=== PATIENT | male | born 1980 ===

== ENCOUNTER 2025-05-04 14:40 | Outpatient (AMB) | payer BC, SELFPAY ==
--- NOTE | 2025-05-04 14:43 | MHC.OFFVIS ---
Intake Visit Reasons: 1 yr sz Allergies Penicillins (PENICILLINS) Allergy (Unknown, Unverified 05/04/25 14:48) UNKNOWN Medication List - Last Reconciled 05/04/25 by Lissette Otto CNP atorvastatin 40 mg PO DAILY levetiracetam 750 mg PO BID 90 days losartan 25 mg PO DAILY HPI Comments Details: He was doing okay. He was taking levetiracetam twice a day. No seizures. Sleep was okay, getting about 7 hours/night, occasionally interrupted by 4-year-old daughter. No significant back pain, managing with exercise and stretching. Liver enzymes (ALT, AST) being monitored by PCP and remain mildly elevated, had labs few months ago. No further events of LOC since the unwitnessed event on 04/02/18 with LOC with confusion and amnesia for several minutes. He had a negative CT of the head, X-rays of the clavicle and lab work. There is no previous history of fainting, or seizures. There is no history of significant head trauma. His mother has episodes that have been thought to be seizures. He has had previous low back pain problems that act up from time to time. [facility] Medical History (Updated 05/04/25 @ 14:48 by Lissette Otto CNP) Low back pain Elevated liver enzymes Seizure disorder Review of Systems Const Denies chills, Denies daytime sleepiness, Denies difficulty sleeping, Denies fatigue, Denies fever(s), Denies frequent falls, Denies headache(s), Denies increased appetite, Denies poor appetite, Denies snoring, Denies weakness, Denies weight gain and Denies weight loss Eyes Denies loss of vision ENT Denies vertigo, Denies dizziness, Denies headache(s) and Denies neck pain Card Denies chest pain at rest, Denies chest pain with activity, Denies syncope, Denies leg edema, Denies palpitations, Denies dyspnea and Denies dyspnea on exertion Resp Denies cough, Denies dyspnea, Denies dyspnea on exertion and Denies snoring GI Denies abdominal pain, Denies constipation, Denies heartburn, Denies diarrhea and Denies nausea Denies urinary frequency, Denies urinary incontinence and Denies urinary urgency Musc Denies abnormal gait, Denies back pain, Denies myalgias, Denies arthralgias, Denies neck pain, Denies numbness and Denies tingling Neuro Denies abnormal gait, Denies vertigo, Denies dizziness, Denies syncope, Denies frequent falls, Denies headache(s), Denies lack of coordination, Denies loss of vision, Denies memory loss, Denies numbness, Denies Other visual disturbances, Denies restless legs, Denies seizure-like activity, Denies tingling, Denies paresthesias, Denies tremor(s) and Denies weakness Psych Denies anxiety, Denies depression, Denies auditory hallucinations, Denies memory loss and Denies visual hallucinations Endo Denies fatigue and Denies palpitations Physical Exam Const Other: General Appearance:? normal, in no acute distress. Heart:? S1, S2 normal, no murmurs. Lungs:? clear anteriorly and posteriorly. Musculoskeletal:? normal. Extremities:? no edema. Psych:? alert, oriented, cognitive function intact, cooperative with exam. Neuro Other: Abnormal Neurological Findings:?none.? Mental Status: alert and oriented X 3. Normal attention, orientation, memory, and affect. Cranial Nerves: Pupils are equal, round, and reactive to light. External ocular muscles are intact. Visual guzman are full, no ptosis. Face is symmetrical, no facial weakness or droop. Facial sensations are normal. Tongue protrudes in midline. Palate elevates symmetrically. Shoulder shrugging is normal Motor Examination: Normal muscle tone, bulk and strength. No atrophy or fasciculations. No drift of the extended upper extremities. DTR 2+. Plantars are flexor. Sensory Exam: Normal light touch, temperature, pinprick, vibration, and joint-position sensations. Rhomberg sign is absent. Coordination: No ataxia. No titubation. Gait Exam: Within normal limits. Cerebellar Signs: [id number] is okay. Extrapyramidal System: No tremor, rigidity with normal facial expressions. No bradykinesia. No bradyphrenia. Normal arm swing and posture. No propulsion or retropulsion. Speech: Normal. Assessment & Plan Assessment & Plan (1) Seizure disorder: Code(s): G40.909 - Epilepsy, unspecified, not intractable, without status epilepticus Category: Medical Plan: Continue levetiracetam 750mg 1 tablet twice a day. He was educated on the importance of medication compliance and risk associated with missed doses including seizures. Follow up in 1 year or sooner as needed. Medications: Refilled levetiracetam 750 mg PO BID 180 tabs 3RF 90 days Coding Level of Care Code Est Pt Level 3 (94911) Diagnoses Seizure disorder G40.909
--- OUTSIDE RECORDS SUMMARY | 2025-05-04 20:05 | XMS_ITS | Encounter Summary ---
Author Organization Formerly [facility] Address [address] [place] [address] Phone Care Team Providers Care Donor Services Manager Name Role Phone Betsy Wisdom MD Primary Care Provider Betsy Wisdom MD Unavailable [phone] Encounter Details Date Type Department Care Team (Latest Contact Info) Description 04/16/2019 Transcribe Orders [facility] [address] [place] [address] Bolivar Sena MD [address] [place] [id number] [email or web address] Nonalcoholic steatohepatitis (Primary Dx) Social History Tobacco Use Types Packs/Day Years Used Date Smoking Tobacco: Never Smokeless Tobacco: Never Alcohol Use Standard Drinks/Week Comments Yes 0 (1 standard drink = 0.6 oz pur e alcohol) in moderation Sex and Gender Information Value Date Recorded Sex Assigned at Not on file Legal Sex Male 9:21 PM EDT Gender Identity Not on file Sexual Orientation Not on file documented as of this encounter Plan of Treatment Not on file documented as of this encounter Results * Ceruloplasmin (04/16/2019 9:02 AM EDT) CERULOPLASMIN 23 20 - 60 mg/dL [facility] Blood 04/16/2019 9:02 AM EDT 04/16/2019 9:07 AM EDT us Bolivar Sena MD LAB BLOOD ORDERABLES Final R esult [address] [address] * (ABNORMAL) Liver fibrosis test (04/16/2019 9:02 AM EDT) Fibrosis score 0.21 [facility] Interpretation (Fibrosis) SEE NOTE [facility] Comment: (NOTE) no fibrosis Fibro Test Score (f) Metavir Score f>=0 and f<=0.21 : F0 (no fibrosis) f>0.21 and f<=0.27 : F0-F1 (no fibrosis) f>0.27 and f<=0.31 : F1 (minimal fibrosis) f>0.31 and f<=0.48 : F1-F2 (minimal fibrosis) f>0.48 and f<=0.58 : F2 (moderate fibrosis) f>0.58 and f<=0.72 : F3 (advanced fibrosis) f>0.72 and f<=0.74 : F3-F4 (advanced fibrosis) f>0.74 and f<=1.00 : F4 (severe fibrosis) HCV Fibrosis Grade SEE NOTE [facility] Comment: (NOTE) Result: F0-F1 NECROINFLAMM SCORE 0.55 [facility] NECROINFLAMM GRADE A2 [facility] NECROINFLAMM INTERP SEE NOTE [facility] Comment: (NOTE) significant activity ActiTest Score (a) Metavir Score a>=0 and a<=0.17 : A0 (no activity) a>0.17 and a<=0.29 : A0-A1 (no activity) a>0.29 and a<=0.36 : A1 (minimal activity) a>0.36 and a<=0.52 : A1-A2 (minimal activity) a>0.52 and a<=0.60 : A2 (significant activity) a>0.60 and a<=0.62 : A2-A3 (significant activity) a>0.62 and a<=1.00 : A3 (severe activity) A2 Macroglobulin 137 106 - 279 mg/dL [facility] Haptoglobin 126 43 - 212 mg/dL [facility] Apolipoprotein A1 130 94 - 176 mg/dL [facility] TOTAL BILIRUBIN 0.6 0.2 - 1.2 mg/dL [facility] GGT 134(H) 3 - 90 U/L [facility] ALT 105(H) 9 - 46 U/L [facility] Specimen/Product ID [id number] [facility] Comments (Chemistry) SEE NOTE [facility] Comment: (NOTE) The reliability of results is dependent on compliance with the preanalytical and analytical conditions recommended by [employer]. The tests have to be deferred for: acute hemolysis, acute hepatitis, acute inflammation, extra hepatic cholestasis. The advice of a specialist should be sought for interpretation in chronic hemolysis and Gilbert's syndrome. The test interpretation is not validated in liver transplant patients. Isolated extreme values of one of the components should lead to caution in interpreting the results. In case of discordance between a biopsy result and a test, it is recommended to seek the advice of a specialist. The causes of these discordances could be due to a flaw of the test or to a flaw in the biopsy: i.e. a liver biopsy has a 33% variability rate for one fibrosis stage. FibroTest is interpretable for chronic hepatitis B and C, alcoholic and non alcoholic steatosis. ActiTest is interpretable for chronic hepatitis B and C. The performance characteristics have been determined by [facility]. It has not been cleared or approved by the U.S. Food and Drug Administration. Performance characteristics refer to the analytical performance of the test. Yakaz, the associated logo, Met[employer]us and all associated [employer] zuleta are the registered trademarks of [employer]. All third libertarian zuleta - (R) and (TM) - are the property of their respective owners. (C) [id number] [employer]. All rights reserved. Test performed at [email or web address] [facility] [address] [place] [address] Director: MJ MEDRANO MD,PHD,SONA Blood 04/16/2019 9:02 AM EDT 04/16/2019 9:06 AM EDT Bolivar Sena MD LAB BLOOD BKR ORDERABLES Fin al Result [address] [address] * (ABNORMAL) Comprehensive metabolic panel (04/16/2019 9:02 AM EDT) SODIUM 141 133 - 146 mmol/L [facility] POTASSIUM 4.4 3.3 - 5.1 mmol/L [facility] CHLORIDE 104 96 - 108 mmol/L [facility] CO2 27 21 - 35 mmol/L [facility] BUN 11 6 - 19 mg/dL [facility] CREATININE 0.90 0.5 - 1.5 mg/dL [facility] GLUCOSE 95 70 - 99 mg/dL [facility] ALBUMIN 4.4 3.9 - 4.8 g/dL [facility] TOTAL PROTEIN 7.0 6.5 - 8.0 g/dL [facility] CALCIUM 9.4 8.4 - 10.3 mg/dL [facility] ALKALINE PHOSPHATASE 67 39 - 117 U/L [facility] TOTAL BILIRUBIN 0.5 0.0 - 1.2 mg/dL [facility] AST 39(H) 0 - 37 U/L [facility] ALT 108(H) 0 - 40 U/L [facility] GLOBULIN 2.6 1 - 4.8 g/dL [facility] EGFR 108 >59 mL/min/1.7 3m2 [facility] Comment:If patient is black, multiply result by 1.159. Estimated glomerular filtration rate calculated using the CKD-EPI equation. ANION GAP 14 10 - 20 mmol/L [facility] Blood 04/16/2019 9:02 AM EDT 04/16/2019 9:07 AM EDT us Bolivar Sena MD LAB BLOOD BKR ORDERABLES Fin al Result Performing Organization Address City/[facility]/ZIP Co de Phone Number [address] [address] documented in this encounter Visit Diagnoses Diagnosis Nonalcoholic steatohepatitis- Primary Other chronic nonalcoholic liver disease documented in this encounter Care Teams Donor Services Manager Relationship Specialty Start Date End Date Betsy Wisdom MD [address] [place] [address] [email or web address] PCP - General 03/30/17 Betsy Wisdom MD [address] [place] [address] [email or web address] Insurance Assigned Provider 10/16/1810/19 documented as of this encounter Additional Source Comments The information contained in this document represents components of the legal health record. It is not the complete legal health record.Formerly [facility]
--- OUTSIDE RECORDS SUMMARY | 2025-05-04 20:05 | XMS_ITS | Clinical Summary ---
Author Organization Formerly [facility] Address [address] [place] [address] Care Team Providers Care [employer] Agriculture Specialist Name Role Phone Mendoza Aguilera MD Unavailable [phone] Poppy Castillo APRN Primary Care Provider [phone] Allergies Active Allergy Reactions Criticality Noted Date Comments Penicillins Unknown/Patient and Family Unable to Define Medium 02/25/2018 Medications levETIRAcetam (KEPPRA) 750 MG tablet Take 1 tablet (750 mg total) by mouth 2 (two) times a day. 2 Active [place]-3 Fatty Acids (Fish Oil) 1200 MG Cap Take by mouth 2 (two) times a day. Active losartan (COZAAR) 25 MG tabletIndications:H ypertension, essential, benign Take 1 tablet (25 mg total) by mouth daily. 90 tablet 5 05/09/20 25 Active atorvastatin (LIPITOR) 40 MG tabletIndications:H yperlipidemia, unspecified hyperlipidemia type Take 1 tablet (40 mg total) by mouth daily. 90 tablet 5 05/25/20 25 Active Active Problems Problem Noted Date Diagnosed Date Sinus tachycardia 11/28/2024 Chronic low back pain 10/26/2024 Fatty liver 10/26/2024 Mild anxiety 10/26/2024 Transaminitis 04/20/2024 White coat syndrome without diagnosis of hyperte nsion 10/12/2023 Seizure 11/19/2022 Primary hypertension 11/19/2022 Hyperlipidemia 11/19/2022 Syncope and collapse 02/25/2018 Resolved Problems Problem Noted Date Diagnosed Date Resolved Date Abnormal LFTs 11/25/2021 04/20/2024 Encounters Date Type Department Care Team Description 03/03/2025 8:00 AM EDT Office Visit [facility] Department of Internal Medicine [address] [place] [address] Poppy Castillo APRN Hyperlipidemia, unspecified hyperlipidemia type (Primary Dx); Hypertension, essential, benign ; Transaminitis; Seizure (HCC); Family history of premature CAD; Prediabetes from Last 3 Months Immunizations Immunization Administration Dates Next Due Tdap 11/19/2022 Family History Medical History Relation Name Comments Heart attack Brother Quinton Torres After event, I had stress tests with no concerning results. Arthritis Father Thong Torres two hip replace ments Hypertension Father Thong Torres Hypertension Mother Chasity Torres Seizures Mother Chasity Torres Stroke Paternal Grandfather Joseph Torres Diabetes Paternal Grandmother Telma Torres Cancer Neg Hx Relation Name Status Comments Brother Quinton Torres Father Thong Torres Mother Chasity Torres Paternal Grandfather Joseph Torres Paternal Grandmother Telma Torres Alive Social History Tobacco Use Types Packs/Day Years Used Date Smoking Tobacco: Never Smokeless Tobacco: Never Tobacco Cessation:Counseling Given: Not Answered Alcohol Use Standard Drinks/Week Comments Yes 6 (1 standard drink = 0.6 oz pur e alcohol) 6 beers on weekend PHQ-2 Answer Date Recorded PHQ-2 Total Score 0 10/26/2024 Sex and Gender Information Value Date Recorded Sex Assigned at Male 06/10/2023 2:36 PM EST Legal Sex Male 2:06 PM EDT Gender Identity Male 06/10/2023 2:36 PM EST Sexual Orientation Heterosexual (straight) 06/10 2:36 PM EST 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 Not on file Not on file Last Filed Vital Signs Vital Sign Reading Time Taken Comments Blood Pressure 132/87 03/03/2025 7:37 AM EDT Pulse 85 03/03/2025 7:37 AM EDT Temperature 35.6 C (96.1 F) 11/25/2021 3:21 PM EDT Respiratory Rate - - Oxygen Saturation 95% 03/03/2025 7:37 AM EDT Inhaled Oxygen Concentration - - Weight 98.2 kg (216 lb 7.9 oz) 03/03/2025 7:37 A M EDT Height 181.6 cm (5' 11.5 ) 11/28/2024 3:25 PM ED T Body Mass Index 29.77 11/28/2024 3:25 PM EDT Plan of Treatment Health Maintenance Due Date Last Done Comments Hepatitis B Vaccines (1 of 3 - 19+ 3-dose series) 11/23/1999 Influenza Vaccine 01/13/2025 COVID-19 Vaccine (1 - 2023-2 5 season) 2025 DTaP/Tdap/Td Vaccines (2 - T d or Tdap) 11/19/2032 11/19/2022 HIV Screening Completed 12/04/2022 Hepatitis C Virus Screening Completed 07/17, 12/04/2022 HPV Vaccines (No Doses Required) Completed Pneumococcal Vaccine: Pediatric (0-5 Years) and At-Risk Patients (6 to 49 Years) Aged Out No longer eligible b ased on patient's age to complete this topic Procedures Procedure Name Priority Date/Time Associated Diagnosis Comments COMPREHENSIVE METABOLIC PANEL Routine 03/03/2025 8:15 AM EDT Transaminitis LIPID PANEL Routine 02/23/2025 7:30 AM EDT Hyperlipidemia, unspecified hyperlipidemia type COMPREHENSIVE METABOLIC PANEL Routine 02/23/2025 7:30 AM EDT Hyperlipidemia, unspecified hyperlipidemia type HEPATITIS C VIRUS (HCV) ANTIBODY Routine 08/13/2023 7:48 AM EST Encounter for preventive health examination HIV 1/2 AG/AB CMIA REFLEX TO CONFIRMATION Routine 12/04/2022 6:49 PM EDT Encounter for preventive health examination from Last 3 Months or Most Recently Relevant to Health Maintenance Results * (ABNORMAL) Comprehensive Metabolic Panel (03/03/2025 8:15 AM EDT) Only the most recent of2 resultswithin the time period is included. Glucose 96 70 - 99 mg/dL [facility] Blood Urea Nitrogen 13 7 - 22 mg/dL [facility] Creatinine, Ser 1.0 0.5 - 1.2 mg/dL [facility] Bun / Creat Ratio 13 11 - 30 [facility] Sodium 141 133 - 145 mmol/L [facility] Potassium 4.5 3.3 - 5.1 mmol/L [facility] Chloride 104 96 - 108 mmol/L [facility] CO2 26 22 - 31 mmol/L [facility] Anion Gap 11 3 - 19 mmol/L [facility] Calcium 9.7 8.8 - 10.6 mg/dL [facility] Total Protein 7.3 6.0 - 8.3 g/dL [facility] Albumin 4.9(H) 3.2 - 4.8 g/dL [facility] Globulin 2.4 2.0 - 3.5 g/dL [facility] Albumin/Globulin Ratio 2.0 1.0 - 5.0 [facility] Aspartate Aminotrans (AST) 30 8 - 37 IU/L [facility] Alanine Aminotrans (ALT) 73(H) 5 - 40 IU/L [facility] Alkaline Phosphatase 86 35 - 140 IU/L [facility] Bilirubin, Total 0.7 0.0 - 1.0 mg/dL [facility] GFR Estimated (calculated) >60 >60 [facility] Comment: As of 2021, the [facility] has updated the creatinine- based estimated glomerular filtration rate (eGFRcr) to the updated CKD-EPI 2020 equation. This change removes the race coefficient of the older calculation, and was made based on recommendations from the National Kidney Foundation and the [place] [employer] of Nephrology's Task Force. The new eGFRcr has similar overall performance characteristics to the older equation and has been assessed to not have potential consequences that disproportionately affect any one group of individuals. However, some mild variation from the older eGFR equation can be expected especially in younger age patients and at higher eGFRcr values. Blood Blood specimen / Unknown 03/03/2025 8:15 AM EDT 03/03/2025 3:10 PM EDT Narrative [facility] - 03/03/2025 3:58 PM EDT [facility] Has the patient fasted?->Yes Poppy Castillo TECHNICAL RECRUITER LAB BLOOD ORDERABLES Final Result Performing Organization Address [facility]/ZIP Co de Phone Number [facility] [address] [place] [address] * (ABNORMAL) LIPID PANEL (02/23/2025 7:30 AM EDT) Cholesterol, Total 157 112 - 239 mg/dL [facility] Triglycerides 182(H) <150 mg/dL [facility] Total Hdl-C Direct 38(L) 40 - 120 mg/dL [facility] LDL Cholesterol 83 57 - 130 mg/dL [facility] Comment: Limitations: Triglycerides >or= 400 mg/dl, samples containing significant amounts of chylomicrons (nonfasting specimen), or in patients with type III hyperlipoproteinemia this calculated LDL may be invalid and a direct LDL is recommended. Risk Factor 4.1 3.3 - 5.0 [facility] Non HDL Cholesterol 119 [facility] Blood Blood specimen / Unknown 02/23/2025 7:30 AM EDT 02/23/2025 8:43 PM EDT Poppy Montes De Ocarockjuan ramon [facility] LAB BLOOD ORDERABLES Final Result Performing Organization Address [facility] Co de Phone Number [facility] [address] [place] [address], * HEPATITIS C VIRUS (HCV) ANTIBODY (08/13/2023 7:48 AM EST) Pathologist [facility] Hepatitis C Virus (HCV) Antibody Non Reactive Non Reactive [facility] Comment: HCV antibody alone does not differentiate between previously resolved infection and active infection. Equivocal and Reactive HCV antibody results should be followed up with an HCV RNA test to support the diagnosis of active HCV infection. Blood specimen (specimen) Blood specimen / Unknown 08/13/2023 7:48 AM EST 08/13/2023 Narrative [facility] ([facility]) - 08/14/2023 7:07 AM EST Performed at: 01 - [facility] [id number] Him Coder: Rosie Munoz MD, Phone: [phone] us Zac Stevens MD LAB BLOOD ORDERABLES Final Res ult [facility] ([facility]) [facility] * HIV 1/2 Ag/Ab CMIA Reflex to Confirmation (12/04/2022 6:49 PM EDT) HIV DUO NON-REACT [facility] Comment: EXPECTED RESULT = NON-REACTIVE The HIVDuo chemiluminescent assay is a 4th Generation HIV test. This assay is a screening test, and abnormal results will be reflexively confirmed via HIV-1 and HIV-2 antibody tests and/or via molecular assays. Blood specimen (specimen) Blood specimen / Unknown 12/04/2022 6:49 PM EDT 12/04/2022 6:50 PM EDT Narrative [facility] - 12/04/2022 8:05 PM EDT Oral consent has been obtained by either the subject of the test or the person authorized to consent to health care for the individual.->Yes Zac Stevens MD LAB BLOOD ORDERABLES Final Res ult [facility] [address] [place] [address] from Last 3 Months or Most Recently Relevant to Health Maintenance Insurance [facility] OUT [facility] - PPO Care Teams [employer]ision Agriculture Specialist Relationship Specialty Start Date End Date Poppy Castillo APRN [address] [place] [address] PCP - General Internal Medicine 10/26/24 Mendoza Aguilera MD [address] [place] [address] [address] [place] [address] [employer] [facility] 11/25/21
--- OUTSIDE RECORDS SUMMARY | 2025-05-04 20:05 | XMS_ITS | Encounter Summary ---
Author Organization [facility] Address [address] [place] [address] Phone Care Team Providers Care It Application Development Manager Name Role Phone Betsy Wisdom MD Primary Care Provider Betsy Wisdom MD Unavailable [phone] Encounter Details Date Type Department Care Team (Latest Contact Info) Description 02/19/2018 Transcribe Orders [facility] Phleb Main [address] [place] [address] Krystyna Stanton PA [address] [place] [address] [email or web address] Fatigue, unspecified type (Primary Dx); Elevated LFTs; High cholesterol; Physical exam Social History Tobacco Use Types Packs/Day Years Used Date Smoking Tobacco: Never Assessed Sex and Gender Information Value Date Recorded Sex Assigned at Not on file Legal Sex Male 9:21 PM EDT Gender Identity Not on file Sexual Orientation Not on file documented as of this encounter Plan of Treatment Not on file documented as of this encounter Results * (ABNORMAL) Urinalysis (02/19/2018 4:23 PM EDT) COLOR Yellow Yellow [facility] CLARITY Clear [facility] GLUCOSE Negative Negative [facility] BILI Negative Negative [facility] KETONES Trace(A) Negative [facility] SPECIFIC GRAVITY 1.010 1.005 - 1.030 [facility] BLOOD Negative Negative [facility] PH 7.0 5.0 - 8.0 [facility] Protein-UA Negative Negative [facility] NITRITE Negative Negative [facility] Leukocyte esterase, ur Negative Negative [facility] Urine (Urine) 02/19/2018 4:2 3 PM EDT 02/19/2018 4:24 PM EDT us Krystyna RO LAB URINE ORDERABLES Final Resu lt [facility] [address] [place] [address] * (ABNORMAL) CBC and differential (02/19/2018 4:14 PM EDT) WBC 7.69 3.40 - 11.20 K/uL [facility] RBC 5.45 4.50 - 5.50 M/uL [facility] HGB 15.8 13.0 - 17.0 g/dL [facility] HCT 47.4 40.0 - 51.0 % [facility] PLT 282 130 - 400 K/uL [facility] MCV 87.0 79.0 - 98.0 fL [facility] MCH 29.0 27.0 - 34.8 pg [facility] MCHC 33.3 31.5 - 36.0 g/dL [facility] RDW 12.5 10.8 - 14.6 % [facility] MPV 10.1 9.4 - 12.4 fl [facility] NRBC 0.00 /100 WBCs [facility] ABSOLUTE NRBC 0.00 K/uL [facility] DIFF METHOD Auto [facility] NEUTS 55.1 45.30 - 77.70 % [facility] LYMPHS 33.0 12.30 - 39.70 % [facility] MONOS 9.1 4.10 - 12.80 % [facility] EOS 2.0 0 - 7.2 % [facility] BASOS 0.5 0 - 2.80 % [facility] Granulocytes, immature (%) 0.3 0.0 - 0.9 % [facility] ABSOLUTE NEUTS 4.24 1.40 - 7.70 K/uL [facility] ABSOLUTE LYMPHS 2.54 0.60 - 3.20 K/uL [facility] ABSOLUTE MONOS 0.70(H) 0.11 - 0.59 K/uL [facility] ABSOLUTE EOS 0.15 0.01 - 0.50 K/uL [facility] ABSOLUTE BASOS 0.04 0.00 - 0.08 K/uL [facility] Granulocytes, immature 0.02 0.00 - 0.05 K/uL [facility] Blood 02/19/2018 4:14 PM EDT 02/19/2018 4:21 PM EDT Krystyna RO LAB BLOOD BKR ORDERABLES Final Result Performing Organization Address City/[facility]/ZIP Co de Phone Number [address] [address] * (ABNORMAL) Lipid panel (02/19/2018 4:14 PM EDT) HDL 39 mg/dL [facility] Comment: Interpretation: Risk Level Males Decreased >45 mg/dL Average 40-45 mg/dL Increased <40 mg/dL CHOLESTEROL 262(H) 0 - 240 mg/dL [facility] TRIGLYCERIDES 184(H) 30 - 160 mg/dL [facility] LDL 186(H) 50 - 129 mg/dL [facility] Comment: LDL levels in terms of risk for coronary heart disease: <100 mg/dL: Optimal 100-129 mg/dL: Near or above optimal 130-159 mg/dL: Borderline high 160-189 mg/dL: High >190 mg/dL: Very High CARDIAC RISK RATIO 6.7(H) 3.4 - 5.0 [facility] Blood 02/19/2018 4:14 PM EDT 02/19/2018 4:21 PM EDT Krystyna RO LAB BLOOD BKR ORDERABLES Final Result Performing Organization Address [facility]/ZIP Co de Phone Number [address] [address] documented in this encounter Visit Diagnoses Diagnosis Fatigue, unspecified type- Primary Elevated LFTs Other abnormal blood chemistry High cholesterol Pure hypercholesterolemia Physical exam Unspecified general medical examination documented in this encounter Care Teams It Application Development Manager Relationship Specialty Start Date End Date Betsy Wisdom MD [address] [place] [address] [email or web address] PCP - General 03/30/17 Betsy Wisdom MD [address] [place] [address] [email or web address] Insurance Assigned Provider 10/16/1810/19 documented as of this encounter Additional Source Comments The information contained in this document represents components of the legal health record. It is not the complete legal health record.[facility]
--- OUTSIDE RECORDS SUMMARY | 2025-05-04 20:05 | XMS_ITS | Clinical Summary ---
Author Organization [facility] Address [address] [place] [address] Phone Care Team Providers Care Box Person Name Role Phone Betsy Wisdom MD Primary Care Provider [phone] Allergies Active Allergy Reactions Criticality Noted Date Comments Penicillins 02/25/2018 Medications niacin 500 MG tablet Take 500 mg by mouth daily with breakfast. Active vitamin E 100 unit Cap capsule Take 100 Units by mouth daily. Active naproxen sodium (ALEVE) 220 MG tablet Take 220 mg by mouth 2 (two) times a day with meals. As needed Active divalproex (DEPAKOTE) [address] tablet Take 250 mg by mouth 2 (two) times a day. Active Active Problems Problem Noted Date Diagnosed Date Syncope and collapse 02/25/2018 Assessment & Plan (06/03/2018 2:34 PM EST): Very pleasant 37-year-old gentleman with episode of syncope which by history and description sounds like seizure episodes. He is currently on Depakote. He had another episode in February where he had transient memory loss and was found sleeping on the bed. His loop monitor and echocardiogram completely normal. My suspicion for cardiac etiology is quite low. I would recommend continuing antiseizure medications. If he continues to have these episodes despite good levels of seizure medications then a loop recorder implantation may be of some value. But and my suspicion for cardiac etiology is quite low Assessment & Plan (02/25/2018 10:48 AM EDT): Very pleasant 37-year-old male with history of possible unconsciousness do not witnessed and treat as patient does not remember. Based on his description of the history sounds like a seizure episode. His ECG is normal. I will check a 2D echocardiogram and a 30 day heart monitor to make sure there is no cardiovascular abnormality. But I believe this is likely a seizure episode and neurological diagnoses workup should be aggressively pursued. I will see him after the test. Family History Medical History Relation Comments Hyperlipidemia Father Hyperlipidemia Mother Stroke Paternal Grandfather Diabetes Paternal Grandmother Relation Status Comments Father Mother Paternal Grandfather Paternal Grandmother Social History Tobacco Use Types Packs/Day Years Used Date Smoking Tobacco: Never Smokeless Tobacco: Never Alcohol Use Standard Drinks/Week Comments Yes 0 (1 standard drink = 0.6 oz pur e alcohol) in moderation Education Answer Date Recorded Are you interested in more education? Not on mayur e 10/10/2022 Are you concerned about learning? Not on file 10/10/2022 No 10/10/2022 No 10/10/2022 Digital Access Answer Date Recorded No 11/10/2022 No 11/10/2022 No 11/10/2022 Reliable internet access at home? Not on file 11/10/2022 Device with a working camera? Not on file Sex and Gender Information Value Date Recorded Sex Assigned at Not on file Legal Sex Male 9:21 PM EDT Gender Identity Not on file Sexual Orientation Not on file Last Filed Vital Signs Vital Sign Reading Time Taken Comments Blood Pressure 120/80 06/03/2018 2:18 PM EST Pulse 81 06/03/2018 2:18 PM EST Temperature - - Respiratory Rate - - Oxygen Saturation 96% 06/03/2018 2:18 PM EST Inhaled Oxygen Concentration - - Weight 100.2 kg (221 lb) 06/03/2018 2:18 PM EST Height 182.9 cm (6') 06/03/2018 2:18 PM EST Body Mass Index 29.97 06/03/2018 2:18 PM EST Plan of Treatment Health Maintenance Due Date Last Done Comments Adult Td,Tdap Booster 1980 DEPRESSION SCREENING 1992 HIV ONE-TIME SCREENING (18-65 YEARS) 1998 VALPROIC ACID (DEPAKENE) LEVEL 04/24/2019 04/24/2018 INFLUENZA VACCINE (#1) 2025 04/25/2018 COVID-19 VACCINE (2024- season) 2025 09/17/2020 LIPID PANEL 04/06/2026 04/06/2021, 03/16, 02/02/2021, Additional history exists SMOKING STATUS SCREENING (Once After 26 Yrs) Completed 06/03/2018 HEPATITIS C SCREENING Completed 06/26/2020 , 07/09/2019, 04/16/2019, Additional history exists HEPATITIS A VACCINES Aged Out No long er eligible based on patient's age to complete this topic HIB VACCINES Aged Out No longer eligi ble based on patient's age to complete this topic MENINGOCOCCAL VACCINES (ACWY) Aged Out No longer eligible based on patient's age to complete this topic MENINGOCOCCAL VACCINES (B) Aged Out N o longer eligible based on patient's age to complete this topic PNEUMOCOCCAL VACCINES (0-49 years) Aged Out No longer eligible based on patient's age to complete this topic Medical Devices Not on file Procedures Procedure Name Priority Date/Time Associated Diagnosis Comments LIPID PANEL Routine 04/06/2021 9:13 AM EDT Hyperlipidemia, unspecified hyperlipidemia type LIVER FIBROSIS TEST Routine 07/09/2019 9:13 AM EST Nonalcoholic steatohepatitis VALPROIC ACID Routine 04/24/2018 8:28 AM EST Seizures from Last 3 Months or Most Recently Relevant to Health Maintenance Results * Lipid panel (04/06/2021 9:13 AM EDT) HDL 35 mg/dL [facility] Comment: Interpretation <40 mg/dL: Low HDL cholesterol (major risk factor for CHD) Greater than or equal to 60 mg/dL: High HDL cholesterol ( negative risk factor for CHD) HDL - cholesterol is affected by a number of factors, e.g. smoking, excerise, hormones, sex and age. CHOLESTEROL 154 0 - 240 mg/dL [facility] TRIGLYCERIDES 101 30 - 160 mg/dL [facility] LDL 99 50 - 129 mg/dL [facility] Comment: LDL levels in terms of risk for coronary heart disease: <100 mg/dL: Optimal 100-129 mg/dL: Near or above optimal 130-159 mg/dL: Borderline high 160-189 mg/dL: High >190 mg/dL: Very High CARDIAC RISK RATIO 4.4 3.4 - 5.0 [facility] Blood 04/06/2021 9:13 AM EDT 04/06/2021 9:17 AM EDT us Krystyna RO LAB BLOOD BKR ORDERABLES Final Result [facility] [address] [place] [address] * (ABNORMAL) Liver fibrosis test (07/09/2019 9:13 AM EST) Fibrosis score 0.21 [facility] Interpretation (Fibrosis) SEE NOTE [facility] Comment: (NOTE) no fibrosis Fibro Test Score [...] : F4 (severe fibrosis) HCV Fibrosis Grade F0 [facility] NECROINFLAMM SCORE 0.46 [facility] NECROINFLAMM GRADE SEE NOTE [facility] Comment: (NOTE) Result: A1-A2 NECROINFLAMM INTERP SEE NOTE [facility] Comment: (NOTE) minimal activity ActiTest Score (a) Metavir Score a>=0 and a<=0.17 : A0 (no activity) a>0.17 and a<=0.29 : A0-A1 (no activity) a>0.29 and a<=0.36 : A1 (minimal activity) a>0.36 and a<=0.52 : A1-A2 (minimal activity) a>0.52 and a<=0.60 : A2 (significant activity) a>0.60 and a<=0.62 : A2-A3 (significant activity) a>0.62 and a<=1.00 : A3 (severe activity) A2 Macroglobulin 151 106 - 279 mg/dL [facility] Haptoglobin 154 43 - 212 mg/dL [facility] Apolipoprotein A1 124 94 - 176 mg/dL [facility] TOTAL BILIRUBIN 0.6 0.2 - 1.2 mg/dL [facility] GGT 90 3 - 90 U/L [facility] ALT 85(H) 9 - 46 U/L [facility] Specimen/Product ID [id number] [facility] Comments (Chemistry) SEE NOTE [facility] Comment: (NOTE) The reliability of results is dependent on compliance with the preanalytical and analytical conditions recommended by [employer]. The tests have to be deferred for: [...] The performance characteristics have been determined by [facility]. It has not been cleared or approved by the U.S. Food and Drug Administration. Performance characteristics refer to the analytical performance of the test. [employer], the associated logo, [employer] and all associated [employer] z[employer] are the registered trademarks of [employer]. All third democrat zuleta - (R) and (TM) - are the property of their respective owners. (C) [id number] [employer]. All rights reserved. Test performed at [employer] [facility] [address] [place] [address] Director: MJ MEDRANO MD,PHD,SONA Blood 07/09/2019 9:13 AM EST 07/09/2019 9:18 AM EST us Bolivar Sena MD LAB BLOOD BKR ORDERABLES Fin al Result Performing Organization Address City/[facility]/ZIP Co de Phone Number [address] [address] * (ABNORMAL) Valproic acid (04/24/2018 8:28 AM EST) VALPROIC ACID 22.7(L) 50.0 - 100.0 ug/mL [facility] Blood 04/24/2018 8:28 AM EST 04/24/2018 8:30 AM EST us Carlos Saleh MD LAB BLOOD BKR SHEILA CLARK Final Result Performing Organization Address City/[facility] Co de Phone Number [address] [address] from Last 3 Months or Most Recently Relevant to Health Maintenance Insurance [facility] Address: [facility] [address] [place] [address] [employer] [place] [address] [place] [address]O [place] [address] [place], [place] [address] [address] [place] [address] [place] [address] [place] [address] HMO POS [facility] HMO POS [address] [place], [place] [address]O POS Care Teams Box Person Relationship Specialty Start Date End Date Betsy Wisdom MD [address] [place] [address] [email or web address] PCP - General 03/30/17 Additional Source Comments The information contained in this document represents components of the legal health record. It is not the complete legal health record.[facility]
--- OUTSIDE RECORDS SUMMARY | 2025-05-04 20:05 | XMS_ITS ---
Author Name [facility] Organization Unknown History of Medication Use Medication Directions Dispensed Refills Start Date End Date Stat us atorvastatin (LIPITOR) 40 MG tablet Take 1 tablet (40 mg total) by mouth daily. 08/17/2023 11/16/2023 active atorvastatin (LIPITOR) 20 MG tablet Take 1 tablet (20 mg total) by mouth daily. 01/15/2023 08/17/2023 active levETIRAcetam (KEPPRA) 750 MG tablet Take 750 mg by mouth 2 (two) times a day. 10/27/2021 active atorvastatin (tablet) 40 mg completed Fish Oil completed levetiracetam (tablet) 750 mg completed melatonin (tablet,chewable) 2.5 mg complet ed Benkelman-3 Fatty Acids (Fish Oil) 1200 MG Cap Take by mouth 2 (two) times a day. active Allergies Allergen Reaction Severity Comment Documented Date Source Statu s PENICILLINS UNKNOWN/PATIENT AND FAMILY UNABLE TO DEFINE 02/25/2018 [facility] active Problems Problem Status Onset Date Problem Type Date of Resolution Source Seizure active 2022-11-19 ProblemAct [facility] Transaminitis active 2024-04-20 ProblemAct [facility] T Other hyperlipidemia active EncounterDiagnosisA ct [facility] White coat syndrome without diagnosis of hypertension active 2023-10-12 ProblemAct [facility] Hyperlipidemia active 2022-11-19 ProblemAct [facility] Immunizations Vaccine Date Source Lot Number Status Tdap 11/19/2022 [facility] [id number] completed Encounters Encounter Type Encounter Reason Primary Diagnosis Location Date Ambulatory [facility] Hyperlipidemia, unspecified Hyperlipidemia, unspecified [facility] Essential (primary) hypertension Essential (primary) hypertension [facility] Encounter for genera l adult medical examination without abnormal findings Encounter for general adult medical examination without abnormal findings [facility] Amb[facility] Other melanin hyperpigmentation Other melanin hyperpigmentation [facility] Amb[facility] Follow-up Follow-up [facility] Amb[facility] Annual Exam Annual Exam [facility] Amb[facility] 4 Ambulatory Family history of ischemic heart disease and other diseases of the circulatory system Family history of ischemic heart disease and other diseases of the circulatory system [facility] Amb[facility] Family history of ischemic heart disease and other diseases of the circulatory system Family history of ischemic heart disease and other diseases of the circulatory system [facility] Amb[facility] Family history of ischemic heart disease and other diseases of the circulatory system Family history of ischemic heart disease and other diseases of the circulatory system [facility] Amb[facility] Other seborrheic keratosis Other seborrheic keratosis [facility] without abnormal findings [facility] Elevated Hepatic Enzymes [facility] Care Team Organization Name Specialty Phone Email Start Date End [facility] 11/29/2024 04/02/2025 [facility] 10/26/2024 025 [facility] Zac Stevens Primary Care 10/26/2024 5 [facility] REJI MARCIAL Primary Care 10/26/2024 [facility] 08/12/2024 [facility] [id number] Primary Care 05/05/2024 11/01/2024 [facility] Zac Stevens Primary Care 12/03/2023 11/01/2024 [email or web address] [facility] STEV[facility] Primary Care 2023 [facility] Zac Stevens Primary Care 06/10/2023 5 [facility] Leslye Alcantar Primary Care 11/25/2021 025 [facility] Leslye Alcantar Primary Care 11/25/2021 022 [facility]
--- OUTSIDE RECORDS SUMMARY | 2025-05-04 20:05 | XMS_ITS | Encounter Summary ---
Author Organization [facility] Address [address] [place] [address] Phone Care Team Providers Care Beer Coil Cleaner Name Role Phone Betsy Wisdom MD Primary Care Provider Betsy Wisdom MD Unavailable [phone] Encounter Details Date Type Department Care Team (Latest Contact Info) Description 11/12/2017 Ancillary Orders Virtual Department [address] [place] [address] Chelsy Henderson PA [address] [place] [address] Nonalcoholic steatohepatitis (MARCH) Social History Tobacco Use Types Packs/Day Years Used Date Smoking Tobacco: Never Assessed Sex and Gender Information Value Date Recorded Sex Assigned at Not on file Legal Sex Male 9:21 PM EDT Gender Identity Not on file Sexual Orientation Not on file documented as of this encounter Plan of Treatment Not on file documented as of this encounter Results * US ABDOMEN LIMITED LIVER (11/20/2017 8:12 AM EDT) Anatomical Region Laterality Modality Abdomen Ultrasound 11/20/2017 8:25 AM EDT Impressions 11/20/2017 8:27 AM EDT Borderline hepatic echogenicity without focal mass. POS - [id number] Narrative 11/20/2017 8:27 AM EDT COMPARISON: There are 04/03/2016 TECHNIQUE: Limited ultrasonic examination of the abdomen was performed and multiple static images obtained. FINDINGS: Liver: Hepatic echogenicity is borderline. It appears more echogenic relative to right kidney than on prior study. No focal lesions are identified. Right Kidney: A single image demonstrates no hydronephrosis. Other: No ascites. Procedure Note David Toribio MD - 11/20/2017 COMPARISON: There are 04/03/2016 TECHNIQUE: Limited ultrasonic examination of the abdomen was performed andmultiple static images obtained. FINDINGS: Liver: Hepatic echogenicity is borderline. It appears more echogenicrelative to right kidney than on prior study. No focal lesions areidentified. Right Kidney: A single image demonstrates no hydronephrosis. Other: No ascites. IMPRESSION: Borderline hepatic echogenicity without focal mass. POS - [id number] us Chelsy RO IMG US ABDOMEN Final Resul t documented in this encounter Visit Diagnoses Diagnosis Nonalcoholic steatohepatitis (MARCH) Nonalcoholic steatohepatitis (MARCH) documented in this encounter Care Teams Beer Coil Cleaner Relationship Specialty Start Date End Date Betsy Wisdom MD [address] [place] [address] [email or web address] PCP - General 03/30/17 Betsy Wisdom MD [address] [place] [address] [email or web address] Insurance Assigned Provider 10/16/1810/19 documented as of this encounter Additional Source Comments The information contained in this document represents components of the legal health record. It is not the complete legal health record.[facility]
--- OUTSIDE RECORDS SUMMARY | 2025-05-04 20:05 | XMS_ITS | Encounter Summary ---
Author Organization [facility] Address [address] [place] [address] Phone Care Team Providers Care Die Setter Name Role Phone Betsy Wisdom MD Primary Care Provider [phone] Betsy Wisdom MD Unavailable [phone] Encounter Details Date Type Department Care Team (Latest Contact Info) Description 11/11/2018 Transcribe Orders [facility] Phleb [facility]aylee [address] [place] [address] Bolivar Sena MD [address] [place] [address] [phone] [email or web address] Nonalcoholic steatohepatitis (Primary Dx) Social [...] as of this encounter Results * (ABNORMAL) Comprehensive metabolic panel (11/11/2018 4:45 PM EDT) SODIUM 141 133 - 146 mmol/L [facility] POTASSIUM 4.0 3.3 - 5.1 mmol/L [facility] CHLORIDE 100 96 - 108 mmol/L [facility] CO2 28 21 - 35 mmol/L [facility] BUN 14 6 - 19 mg/dL [facility] CREATININE 1.10 0.5 - 1.5 mg/dL [facility] GLUCOSE 87 70 - 99 mg/dL [facility] ALBUMIN 4.4 3.9 - 4.8 g/dL [facility] TOTAL PROTEIN 7.1 6.5 - 8.0 g/dL [facility] CALCIUM 9.6 8.4 - 10.3 mg/dL [facility] ALKALINE PHOSPHATASE 71 39 - 117 U/L [facility] TOTAL BILIRUBIN 0.3 0.0 - 1.2 mg/dL [facility] AST 29 0 - 37 U/L [facility] ALT 62(H) 0 - 40 U/L [facility] GLOBULIN 2.7 1 - 4.8 g/dL [facility] EGFR 85 >59 mL/min/1.7 3m2 [facility] Comment:If patient is black, multiply result by 1.159. Estimated glomerular filtration rate calculated using the CKD-EPI equation. ANION GAP 17 10 - 20 mmol/L [facility] Blood 11/11/2018 4:45 PM EDT 11/11/2018 4:49 PM EDT us Bolivar Sena MD LAB BLOOD BKR ORDERABLES Fin al Result Performing Organization Address City/State/[facility] Co de Phone Number [facility] [address] [place] [address] documented in this encounter Visit Diagnoses Diagnosis Nonalcoholic steatohepatitis- Primary Other chronic nonalcoholic liver disease documented in this encounter Care Teams Die Setter Relationship Specialty Start Date End Date Betsy Wisdom MD [address] [place] [address] PCP - General 03/30/17 Betsy Wisdom MD [address] [place] [address] Insurance Assigned Provider 10/16/1810/19 documented as of this encounter Additional Source Comments The information contained in this document represents components of the legal health record. It is not the complete legal health record.[facility]
--- OUTSIDE RECORDS SUMMARY | 2025-05-04 20:05 | XMS_ITS | Encounter Summary ---
Author Organization [facility] Address [address] [place] [address] Phone Care Team Providers Care Logistics Research Engineer Name Role Phone Betsy Wisdom MD Primary Care Provider Betsy Wisdom MD Unavailable [phone] Encounter Details Date Type Department Care Team (Late st Contact Info) Description 02/02/2021 Transcribe Orders [facility] Phleb Main [address] [place] [address] Gonzalez Aaron MD 38 [facility], [place]. 204, [address] [place] [address] [email or web address] Social History Tobacco Use Types Packs/Day Years [...] on file documented as of this encounter Visit Diagnoses Not on filedocumented in this encounter Care Teams Logistics Research Engineer Relationship Specialty Start Date End Date Betsy Wisdom MD [address] [place] [email or web address] PCP - General 03/30/17 Betsy Wisdom MD [address] [place] [address] [email or web address] Insurance Assigned Provider 10/16/1810/19 documented as of this encounter Additional Source Comments The information contained in this document represents components of the legal health record. It is not the complete legal health record.[facility]
--- OUTSIDE RECORDS SUMMARY | 2025-05-04 20:05 | XMS_ITS | Encounter Summary ---
Author Organization [facility] Address [address] [facility] [address] [place] [address] Phone Care Team Providers Care Welt Sole Layer Name Role Phone Betsy Wisdom MD Primary Care Provider [phone] Betsy Wisdom MD Unavailable [phone] Encounter Details Date Type Department Care Team (Latest Contact Info) Description 07/31/2017 Transcribe Orders [facility] Phleb [place] [address] [address] Chelsy Henderson PA [address] [place] [address] Nonspecific abnormal results of liver function study (Primary Dx) Social History Tobacco Use Types Packs/Day Years Used Date Smoking Tobacco: Never Assessed Sex and Gender Information Value Date Recorded Sex Assigned at Not on file Legal Sex Male 9:21 PM EDT Gender Identity Not on file Sexual Orientation Not on file documented as of this encounter Plan of Treatment Not on file documented as of this encounter Results * PT-INR (07/31/2017 10:36 AM EST) PT 10.8 10.2 - 12.9 sec [facility] INR 1.0 0.9 - 1.1 [facility] Comment:Therapeutic range fo r oral Vitamin K antagonists: 2.0-3.5 Blood 07/31/2017 10:3 6 AM EST 07/31/2017 10:39 AM EST us Chelsy RO LAB BLOOD BKR ORDERABLES Fi nal Result [address] [address] * Liver fibrosis test (07/31/2017 10:36 AM EST) HCV Fibro-Sure SEE NOTE 08:26 PM [facility] Comment: (NOTE) Test Result Flag Unit RefValue Liver Fibrosis, FibroTest Fibrosis Score 0.21 Fibrosis Stage RESULT: F0-F1 Fibrosis Interpretation SEE NOTE no fibrosis Fibro Test Score Metavir Score 0.00-0.21 F0 no fibrosis 0.22-0.27 F0-F1 0.28-0.31 F1 minimal fibrosis 0.32-0.48 F1-F2 0.49-0.58 F2 moderate fibrosis 0.59-0.72 F3 advanced fibrosis 0.73-0.74 F3-F4 0.75-1.00 F4 severe fibrosis Necroinflammat Act Score 0.53 Necroinflammat Act Grade A2 Necroinflammat Interp SEE NOTE significant activity ActiTest Score Metavir Score 0.00-0.17 A0 no activity 0.18-0.29 A0-A1 0.30-0.36 A1 minimal activity 0.37-0.52 A1-A2 0.53-0.60 A2 significant activity 0.61-0.62 A2-A3 0.63-1.00 A3 severe activity Rctwd-5-Yadhunbgzyeeg 137 mg/dL 106-279 Haptoglobin 118 mg/dL 43-212 Apolipoprotein A1 125 mg/dL 94-176 Total Bilirubin 0.7 mg/dL 0.2-1.2 GGT 94 h U/L 3-90 ALT 98 h U/L 9-46 Reference ID [id number] Footnote SEE NOTE The reliability of results is dependent on compliance with the preanalytical and analytical conditions recommended by [employer]. The tests have to be deferred for: [...] The performance characteristics have been determined by [facility]. It has not been cleared or approved by the U.S. Food and Drug Administration. Performance characteristics refer to the analytical performance of the test. [employer], the associated logo, [employer] and all associated [employer] zuleta are the registered trademarks of [employer]. All third libertarian zuleta - (R) and (TM) - are the property of their respective owners. (C) [id number] [employer]. All rights reserved. Test Performed by: [employer] [id number] [place] [address] Blood 07/31/2017 10:3 6 AM EST 07/31/2017 10:39 AM EST us Chelsy RO LAB BLOOD BKR ORDERABLES Fi nal Result [facility] * (ABNORMAL) Comprehensive metabolic panel (07/31/2017 10:36 AM EST) SODIUM 141 133 - 146 mmol/L [facility] POTASSIUM 4.2 3.3 - 5.1 mmol/L [facility] CHLORIDE 104 96 - 108 mmol/L [facility] CO2 26 21 - 35 mmol/L [facility] BUN 14 6 - 19 mg/dL [facility] CREATININE 1.00 0.5 - 1.5 mg/dL [facility] GLUCOSE 89 70 - 99 mg/dL [facility] ALBUMIN 4.4 3.9 - 4.8 g/dL [facility] TOTAL PROTEIN 7.3 6.5 - 8.0 g/dL [facility] CALCIUM 9.3 8.4 - 10.3 mg/dL [facility] ALKALINE PHOSPHATASE 67 39 - 117 U/L [facility] TOTAL BILIRUBIN 0.6 0 - 1.2 mg/dL [facility] AST 51(H) 0 - 37 U/L [facility] ALT 111(H) 0 - 40 U/L [facility] GLOBULIN 2.9 1 - 4.8 g/dL [facility] EGFR >60 60 - 1000 mL/min/1.7 3m2 [facility] Comment:Abnormal if <60. If patient is -Citizen Of The [place], multiply the result by 1.21. ANION GAP 15 10 - 20 mmol/L [facility] Blood 07/31/2017 10:3 6 AM EST 07/31/2017 10:39 AM EST us Chelsy RO LAB BLOOD BKR ORDERABLES Fi nal Result [facility] [address] [place], [place] [id number] * (ABNORMAL) CBC and differential (07/31/2017 10:36 AM EST) WBC 6.22 3.40 - 11.20 K/uL [facility] RBC 5.04 4.50 - 5.50 M/uL [facility] HGB 14.8 13.0 - 17.0 g/dL [facility] HCT 44.6 40.0 - 51.0 % [facility] PLT 255 130 - 400 K/uL [facility] MCV 88.5 79.0 - 98.0 fL [facility] MCH 29.4 27.0 - 34.8 pg [facility] MCHC 33.2 31.5 - 36.0 g/dL [facility] RDW 12.7 10.8 - 14.6 % [facility] MPV 10.4 9.4 - 12.4 fl [facility] NRBC 0.00 /100 WBCs [facility] ABSOLUTE NRBC 0.00 K/uL [facility] DIFF METHOD Auto [facility] NEUTS 47.6 45.30 - 77.70 % [facility] LYMPHS 39.4 12.30 - 39.70 % [facility] MONOS 11.1 4.10 - 12.80 % [facility] EOS 1.1 0 - 7.2 % [facility] BASOS 0.5 0 - 2.80 % [facility] Granulocytes, immature (%) 0.3 0.0 - 0.9 % [facility] ABSOLUTE NEUTS 2.96 1.40 - 7.70 K/uL [facility] ABSOLUTE LYMPHS 2.45 0.60 - 3.20 K/uL [facility] ABSOLUTE MONOS 0.69(H) 0.11 - 0.59 K/uL [facility] ABSOLUTE EOS 0.07 0.01 - 0.50 K/uL [facility] ABSOLUTE BASOS 0.03 0.00 - 0.08 K/uL [facility] Granulocytes, immature 0.02 0.00 - 0.05 K/uL [facility] Blood 07/31/2017 10:3 6 AM EST 07/31/2017 10:39 AM EST us Chelsy RO LAB BLOOD BKR ORDERABLES Fi nal Result Performing Organization Address [facility]/State/[facility] Co de Phone Number [address] [address] documented in this encounter Visit Diagnoses Diagnosis Nonspecific abnormal results of liver function study- Primary documented in this encounter Care Teams Welt Sole Layer Relationship Specialty Start Date End Date Betsy Wisdom MD [address] [place] [address] [email or web address] PCP - General 03/30/17 Betsy Wisdom MD [address] [place] [address] Insurance Assigned Provider 10/16/1810/19 documented as of this encounter Additional Source Comments The information contained in this document represents components of the legal health record. It is not the complete legal health record.[facility]
--- OUTSIDE RECORDS SUMMARY | 2025-05-04 20:05 | XMS_ITS | Encounter Summary ---
Author Organization [facility] Address [address] [employer] [facility] [address] [place] [address] Phone Care Team Providers Care Print Shop Manager Name Role Phone Betsy Wisdom MD Primary Care Provider Betsy Wisdom MD Unavailable [phone] Encounter Details Date Type Department Care Team (Late st Contact Info) Description 11/09/2018 Ancillary Orders [facility], X-Ray - [facility] [address] [place] [address] Krystyna Stanton PA [address] [place] [address] [email or web address] Social History Tobacco Use Types Packs/Day Years [...] on filedocumented in this encounter Care Teams Print Shop Manager Relationship Specialty Start Date End Date Betsy Wisdom MD [address] [place] [address] PCP - General 03/30/17 Betsy Wisdom MD [address] [place] [address] [email or web address] Insurance Assigned Provider 10/16/1810/19 documented as of this encounter Additional Source Comments The information contained in this document represents components of the legal health record. It is not the complete legal health record.[facility]
--- OUTSIDE RECORDS SUMMARY | 2025-05-04 20:05 | XMS_ITS | Encounter Summary ---
Author Organization [facility] Address [address] [facility] [address] [place] [address] Phone Care Team Providers Care Heater Room Helper Name Role Phone Betsy Wisdom MD Primary Care Provider Betsy Wisdom MD Unavailable [phone] Encounter Details Date Type Department Care Team (Latest Contact Info) Description 02/19/2018 Transcribe Orders [facility] Phleb Main [address] [place] [address] Bolivar Sena MD [address] [place] [phone] [email or web address] MARCH (nonalcoholic steatohepatitis) (Primary Dx) Social History Tobacco Use Types Packs/Day Years Used Date Smoking Tobacco: Never Assessed Sex and Gender Information Value Date Recorded Sex Assigned at Not on file Legal Sex Male 9:21 PM EDT Gender Identity Not on file Sexual Orientation Not on file documented as of this encounter Plan of Treatment Not on file documented as of this encounter Results * Ferritin (02/19/2018 4:14 PM EDT) FERRITIN 156 30 - 400 ug/L [facility] Blood 02/19/2018 4:14 PM EDT 02/19/2018 4:21 PM EDT us Bolivar Sena MD LAB BLOOD BKR ORDERABLES Fin al Result Performing Organization Address City/State/[facility] Co de Phone Number [address] [address] * Iron and iron binding capacity (02/19/2018 4:14 PM EDT) IRON 139 45 - 160 ug/dL [facility] IRON BINDING CAPACITY 304 228 - 428 ug/dL [facility] TRANSFERRIN SATURAT. 46 20 - 55 % [facility] Blood 02/19/2018 4:14 PM EDT 02/19/2018 4:21 PM EDT us Bolivar Sena MD LAB BLOOD BKR ORDERABLES Fin al Result Performing Organization Address [facility] Co de Phone Number [address] [address] * (ABNORMAL) CPK (creatine kinase) (02/19/2018 4:14 PM EDT) Pathologist [facility] CREATINE KINASE 255(H) 35 - 232 U/L [facility] Blood 02/19/2018 4:14 PM EDT 02/19/2018 4:21 PM EDT us Bolivar Sena MD LAB BLOOD BKR ORDERABLES Fin al Result Performing Organization Address [facility] Co de Phone Number [address] [address] * (ABNORMAL) Comprehensive metabolic panel (02/19/2018 4:14 PM EDT) SODIUM 141 133 - 146 mmol/L [facility] POTASSIUM 4.1 3.3 - 5.1 mmol/L [facility] CHLORIDE 100 96 - 108 mmol/L [facility] CO2 28 21 - 35 mmol/L [facility] BUN 15 6 - 19 mg/dL [facility] CREATININE 0.90 0.5 - 1.5 mg/dL [facility] GLUCOSE 77 70 - 99 mg/dL [facility] ALBUMIN 4.5 3.9 - 4.8 g/dL [facility] TOTAL PROTEIN 7.4 6.5 - 8.0 g/dL [facility] CALCIUM 9.7 8.4 - 10.3 mg/dL [facility] ALKALINE PHOSPHATASE 67 39 - 117 U/L [facility] TOTAL BILIRUBIN 0.6 0.0 - 1.2 mg/dL [facility] AST 24 0 - 37 U/L [facility] ALT 45(H) 0 - 40 U/L [facility] GLOBULIN 2.9 1 - 4.8 g/dL [facility] EGFR 109 >59 mL/min/1.7 3m2 [facility] Comment:If patient is black, multiply result by 1.159. Estimated glomerular filtration rate calculated using the CKD-EPI equation. ANION GAP 17 10 - 20 mmol/L [facility] Blood 02/19/2018 4:14 PM EDT 02/19/2018 4:21 PM EDT Bolivar Sena MD LAB BLOOD BKR ORDERABLES Fin al Result Performing Organization Address [facility] Co de Phone Number [address] [address] * Antinuclear antibody (LAMIN) (02/19/2018 4:14 PM EDT) LAMIN SCREEN ON HEP 2 Negative Negative [facility] Blood 02/19/2018 4:14 PM EDT 02/19/2018 4:21 PM EDT Bolivar Sena MD LAB BLOOD BKR ORDERABLES Fin al Result Performing Organization Address [facility] Co de Phone Number [address] [address] documented in this encounter Visit Diagnoses Diagnosis MARCH (nonalcoholic steatohepatitis)- Primary Other chronic nonalcoholic liver disease documented in this encounter Care Teams Heater Room Helper Relationship Specialty Start Date End Date Betsy Wisdom MD [address] [place] [address] PCP - General 03/30/17 Betsy Wisdom MD [address] [place] [email or web address] Insurance Assigned Provider 10/16/1810/19 documented as of this encounter Additional Source Comments The information contained in this document represents components of the legal health record. It is not the complete legal health record.[facility]
--- OUTSIDE RECORDS SUMMARY | 2025-05-04 20:05 | XMS_ITS | Encounter Summary ---
Author Organization [facility] Address [address] [employer] [facility] [address] [place] [address] Phone Care Team Providers Care Lvn Lpn Name Role Phone Betsy Wisdom MD Primary Care Provider Betsy Wisdom MD Unavailable [phone] Encounter Details Date Type Department Care Team (Late st Contact Info) Description 11/09/2018 Ancillary Orders [facility], X-Ray - [place] [address] [place] [address] Krystyna Stanton PA [address] [facility] [place] [address] [email or web address] Low back pain, unspecified back pain laterality, unspecified chronicity, with sciatica presence unspecified; Pain; Contracture of right ankle; Carbuncle, ankle Social History Tobacco Use Types Packs/Day Years [...] documented as of this encounter Results * XR SHOULDER 2 VIEWS (RIGHT) (11/09/2018 2:39 PM EDT) Anatomical Region Laterality Modality Shoulder Right Radiographic Yumiko ging 11/09/2018 2:40 PM EDT Impressions 11/09/2018 2:41 PM EDT Unremarkable evaluation of the right shoulder. S/S: Right shoulder pain and tenderness, no trauma POS - [id number] Narrative 11/09/2018 2:41 PM EDT COMPARISON: None FINDINGS: 4 views of the right shoulder are obtained. The AC joint is unremarkable. No glenohumeral degenerative changes are seen. No periarticular calcifications are evident. No focal bony injury or bony displacement is seen. Procedure Note Clive Mathews MD - 11/09/2018 COMPARISON: None FINDINGS: 4 views of the right shoulder are obtained. The AC joint is unremarkable. No glenohumeral degenerative changes are seen. No periarticular calcifications are evident. No focal bony injury or bony displacement is seen. IMPRESSION: Unremarkable evaluation of the right shoulder. S/S: Right shoulder pain and tenderness, no trauma POS - [id number] us Krystyna RO IMG XR UPPER EXTREMITY Final Re sult * XR LUMBOSACRAL SPINE 4 OR MORE VIEWS (11/09/2018 2:39 PM EDT) Anatomical Region Laterality Modality L-spine Radiographic Yumiko ging 11/09/2018 2:43 PM EDT Impressions 11/09/2018 2:45 PM EDT Mild to moderate thoracal lumbar spondylosis with disc space narrowing, bony spurring, and a mild curvature convex to the left. No acute compression fracture is seen. S/S: Low back pain, thoracolumbar spondylosis POS - [id number] Narrative 11/09/2018 2:45 PM EDT COMPARISON: None FINDINGS: AP, lateral, both oblique, and coned-down views of the lumbar spine are obtained. There is a mild thoracolumbar curve convex to the left. Mild diffuse thoracolumbar disc space narrowing is noted with bony spurring most prominent in the lower thoracic region. There is negligible facet joint sclerosis. No pars defects are seen. The SI joints are unremarkable. Procedure Note Clive Mathews MD - 11/09/2018 COMPARISON: None FINDINGS: AP, lateral, both oblique, and coned-down views of the lumbar spine areobtained. There is a mild thoracolumbar curve convex to the left. Mild diffuse thoracolumbar disc space narrowing is noted with bonyspurring most prominent in the lower thoracic region. There is negligible facet joint sclerosis. No pars defects are seen. The SI joints are unremarkable. IMPRESSION: Mild to moderate thoracal lumbar spondylosis with disc space narrowing,bony spurring, and a mild curvature convex to the left. No acute compression fracture is seen. S/S: Low back pain, thoracolumbar spondylosis POS - [id number] Krystyna RO IMG XR SPINE Final Result * XR ANKLE 3 OR MORE VIEWS (RIGHT) (11/09/2018 2:39 PM EDT) Anatomical Region Laterality Modality Ankle Right Radiographic Yumiko ging 11/09/2018 2:42 PM EDT Impressions 11/09/2018 2:43 PM EDT Unremarkable evaluation of the right ankle and slight anterior soft tissue swelling seen on lateral view. S/S: Lump anterior right ankle, no pain or trauma POS - [id number] Narrative 11/09/2018 2:43 PM EDT COMPARISON: None FINDINGS: 4 views of the right ankle are obtained. No significant ankle effusion is seen. There is minor soft tissue swelling ventral to the distal tibia on lateral view. The ankle mortise is approximated. No acute fracture or bony displacement is seen. Procedure Note Clive Mathews MD - 11/09/2018 COMPARISON: None FINDINGS: 4 views of the right ankle are obtained. No significant ankle effusion is seen. There is minor soft tissue swelling ventral to the distal tibia on lateralview. The ankle mortise is approximated. No acute fracture or bony displacement is seen. IMPRESSION: Unremarkable evaluation of the right ankle and slight anterior soft tissueswelling seen on lateral view. S/S: Lump anterior right ankle, no pain or trauma POS - [id number] Krystyna RO IMG XR LOWER EXTREMITY Final Re sult documented in this encounter Visit Diagnoses Diagnosis Low back pain, unspecified back pain laterality, unspecified chronicity, with sciatica presence unspecified Pain Generalized pain Contracture of right ankle Carbuncle, ankle Carbuncle and furuncle of leg, except foot Contracture of right ankle Carbuncle, ankle Carbuncle and furuncle of leg, except foot Low back pain, unspecified back pain laterality, unspecified chronicity, with sciatica presence unspecified Pain Generalized pain documented in this encounter Care Teams Lvn Lpn Relationship Specialty Start Date End Date Betsy Wisdom MD [address] [place] [address] PCP - General 03/30/17 Betsy Wisdom MD [address] [place] [address] Insurance Assigned Provider 10/16/1810/19 documented as of this encounter Additional Source Comments The information contained in this document represents components of the legal health record. It is not the complete legal health record.[facility]
== END 2025-05-04 14:59 | disposition home or self-care (01) ==
LOC: HO.HSM 14:41
PROVIDERS: PCP Internal Medicine; Visit Provider Registered Nurse
DX: G40.909 Epilepsy, unspecified, not intractable, without status epilepticus (principal)
CPT/HCPCS: 99213